=== PATIENT | male | born 1960 | race Caucasian/White ===

== ENCOUNTER 2016-12-01 10:56 | Emergency (ER) | payer MEDICAID ==
[2016-12-01] MEDS ORDERED: Sulfamethoxazole/Trimethoprim 800-160 MG Tab ONE (11:00)
--- NOTE | 2016-12-01 11:33 | EDM.PDOC ---
ED HPI GENERAL MEDICAL PROBLEM - General Chief Complaint: General Stated Complaint: POSSIBLE PNEUMONIA Time Seen by Provider: 12/01/16 11:05 Source of Information: Reports: Patient History Limitations: Reports: No limitations - History of Present Illness INITIAL COMMENTS - FREE TEXT/NARRATIVE: According to patient he has been having cough for past 1 wk. Cough is non productive and persistent all day and night. No fever or chills. He does have asthma, and claims it has been getting worse, get frequent chest tightness and wheezing. No body aches or chills. Has been feeling weak and tired. No nausea or vomiting. no loss of appetite. No chest pain, abdominal pain. No other complaints. Improves with: Reports: None Worsens with: Reports: None Associated Symptoms: Reports: cough, weakness. Denies: confusion, chest pain, diaphoresis, fever/chills, headaches, loss of appetite, nausea/vomiting, rash, seizure, shortness of breath - Related Data Allergies Allergy/AdvReac Type Severity Reaction Status Date / Time No Known Allergies Allergy Verified 12/01/16 11:09 Home Meds: Home Meds Albuterol [Ventolin HFA] 1 puff INH Q4HR PRN 12/01/16 [History] Fluticasone/Salmeterol [Advair 250-50 Diskus] 1 each IH BID 12/01/16 [History] Past Medical History HEENT History: Reports: None Cardiovascular History: Reports: None Respiratory History: Reports: None, Asthma Gastrointestinal History: Reports: None Genitourinary History: Reports: None Musculoskeletal History: Reports: Back pain, chronic Neurological History: Reports: None Endocrine/Metabolic History: Reports: None Oncologic (Cancer) History: Reports: None - Past Surgical History Other HEENT Surgeries/Procedures: cataract surgery right eye Other Respiratory Surgeries/Procedures: asthma Other Musculoskeletal Surgeries/Procedures:: coccyx fracture, stiffness in joints ED ROS GENERAL - Review of Systems Review Of Systems: See Below Constitutional: Reports: weakness. Denies: fever, chills HEENT: Denies: Ear pain, Rhinitis, Sinus problem, Throat pain, Throat swelling Respiratory: Reports: Wheezing, Cough. Denies: Shortness of Breath, Pleuritic Chest Pain, Sputum Cardiovascular: Denies: Chest pain, Lightheadedness Endocrine: Denies: fatigue GI/Abdominal: Denies: Abdominal pain, Constipation, Diarrhea, Nausea, Vomiting : Denies: dysuria, flank pain Musculoskeletal: Denies: joint pain, joint swelling Skin: Denies: pruritis, rash ED EXAM, GENERAL - Physical Exam Exam: See Below Exam Limited By: No limitations General Appearance: alert, WD/WN, no apparent distress Eye Exam: bilateral eye: EOMI, PERRL Ears: normal external exam, normal canal, hearing grossly normal, normal TMs Ear Exam: bilateral ear: auricle normal, canal normal, TM normal Nose: normal inspection, normal mucosa, no blood, nasal drainage (minimal clear discharge) Throat/Mouth: Normal inspection, Normal lips, Normal teeth, Normal gums, Normal oropharynx, Normal voice, No airway compromise Head: atraumatic, normocephalic Neck: normal inspection, supple, non-tender, full range of motion Respiratory/Chest: no respiratory distress, normal breath sounds, no accessory muscle use, chest non-tender, rhonchi (few expiratory rhonchi hear over the lung rao) Cardiovascular: normal peripheral pulses, regular rate, rhythm, no edema, no gallop, no JVD, no murmur, no rub Extremities: normal inspection, normal range of motion, non-tender, normal capillary refill, no pedal edema Skin Exam: Warm, Intact Course - Vital Signs Text/Narrative:: Pt's CBC and his chest Xray appear normal. Pt reassured that he has bronchitis with bronchospasms secondary to underlying asthma. His SPO is 98% on room air and his vital are stable. As his symptoms have been going on for more than a week and getting worse, I have empirically covered him with BActrim for 1 wk. Continue albuterol inhaler as needed for wheezing episodes.Advised steam inhalations 2-3 times daily and also Mucinex for cough as needed Last Recorded V/S: Last Vital Signs Temp 97.9 F 12/01/16 11:05 Pulse 81 12/01/16 11:05 Resp 20 12/01/16 11:05 BP 141/93 H 12/01/16 11:05 Pulse Ox 98 12/01/16 11:05 - Orders/Labs/Meds Orders: Active Orders 24 hr Category Date Time Status Chest 2V [CR] Stat Exams 12/01/16 11:27 Ordered Labs: Laboratory Tests 12/01/16 Range/Units 11:27 WBC 8.5 (4.0-11.0) K/uL RBC 5.26 (4.50-6.50) M/uL Hgb 15.1 (13.0-18.0) g/dL Hct 45.2 (40.0-54.0) % MCV 86 (76-96) fL MCH 28.7 (27.0-32.0) pg MCHC 33.4 (31.0-35.0) g/dL RDW 14.4 (11.0-16.0) % Plt Count 310 (150-400) K/uL MPV 10.1 H (6.0-10.0) fL Neut % (Auto) 58.4 (45.0-70.0) % Lymph % (Auto) 26.9 (20.0-40.0) % [place] % (Auto) 6.4 (3.0-10.0) % Eos % (Auto) 7.7 H (1.0-5.0) % Baso % (Auto) 0.6 H (0.0-0.5) % Neut # (Auto) 4.96 (2.00-7.50) K/uL Lymph # (Auto) 2.28 (1.50-4.00) K/uL [place] # (Auto) 0.54 (0.20-0.80) K/uL Eos # (Auto) 0.65 H (0.04-0.40) K/uL Baso # (Auto) 0.05 (0.02-0.10) K/uL Departure - Departure Time of Disposition: 12:10 Disposition: Home, Self-Care 01 Condition: good Clinical Impression: Bronchitis with bronchospasm Forms: ED Department Discharge Additional Instructions: Pt's CBC and his chest Xray appear normal. Pt reassured that he has bronchitis with bronchospasms secondary to underlying asthma. His SPO is 98% on room air and his vital are stable. As his symptoms have been going on for more than a week and getting worse, I have empirically covered him with BActrim for 1 wk. Continue albuterol inhaler as needed for wheezing episodes.Advised steam inhalations 2-3 times daily and also Mucinex for cough as needed - Problem List & Annotations (1) Bronchitis with bronchospasm SNOMED Code(s): 28954327, 26119747 Code(s): J20.9 - ACUTE BRONCHITIS, UNSPECIFIED Status: Acute Current Visit: Yes - Problem List Review Problem List Initiated/Reviewed/Updated: Yes - My Orders Last 24 Hours: My Active Orders 12/01/16 11:27 Chest 2V [CR] Stat - Assessment/Plan Last 24 Hours: My Active Orders 12/01/16 11:27 Chest 2V [CR] Stat Assessment:: Bronchitis with Bronchospasm Plan: Pt's CBC and his chest Xray appear normal. Pt reassured that he has bronchitis with bronchospasms secondary to underlying asthma. His SPO is 98% on room air and his vital are stable. As his symptoms have been going on for more than a week and getting worse, I have empirically covered him with BActrim for 1 wk. Continue albuterol inhaler as needed for wheezing episodes.Advised steam inhalations 2-3 times daily and also Mucinex for cough as needed
[2016-12-01 11:34] VITALS: BP 141/93
--- NOTE | 2016-12-02 07:27 | CR ---
DATE OF SERVICE: 12/01/16 CLINICAL DATA: Cough PA AND LATERAL CHEST: The heart size is normal. There is mild pleural thickening of both hemithoraces. The lungs are clear. No pneumothorax. No pleural effusions. No areas of consolidation. There is degenerative disc disease at multiple levels in the thoracic spine. No significant changes from the prior exam. IMPRESSION: No evidence of acute intrathoracic disease. [id number] [facility]
== END 2016-12-01 12:20 | disposition home or self-care (01) ==
LOC: LB.ED 10:56
DX: J40 Bronchitis, not specified as acute or chronic (principal); J98.01 Acute bronchospasm; Z79.899 Other long term (current) drug therapy; Z98.41 Cataract extraction status, right eye
CPT/HCPCS: 36415; 71020; 85025; 99283; A9270

== ENCOUNTER 2017-09-01 01:04 | Emergency (ER) | payer MEDICAID ==
[2017-09-01] MEDS ORDERED: methylPREDNISolone Sodium Succinate 125 MG/2 ML SDV IVPUSH ONE (01:46)
[2017-09-01 01:50] VITALS: BP 158/107
[2017-09-01] MEDS ORDERED: predniSONE 10 MG Tab ONE (02:00)
[2017-09-01] MEDS ORDERED: Albuterol/Ipratropium 3.0-0.5 MG/3 ML Neb Soln ONE (02:16)
[2017-09-01] MEDS ORDERED: Albuterol/Ipratropium 3.0-0.5 MG/3 ML Neb Soln NEB SCH (06:00)
--- NOTE | 2017-09-01 13:13 | EDM.PDOC ---
ED HPI GENERAL MEDICAL PROBLEM - General Chief Complaint: Asthma Stated Complaint: Asthma, trouble breathing Time Seen by Provider: 09/01/17 01:34 Source of Information: Reports: Patient, Family History Limitations: Reports: Respiratory Distress - History of Present Illness INITIAL COMMENTS - FREE TEXT/NARRATIVE: This is a 56yo M who states the past week he has been having increased shortness of breath and using his inhaler multiple times a day. Patient did state he had some chest pressure yesterday and the day before but has not had this today. Patient has a history of asthma and had been on inhaled corticosteroids since he was 14 then was told to discontinue them many years ago. Since then he has only been on his rescue inhaler and what the patient thinks is Spiriva. Patient states he has trouble catching his breath. He is planning a trip later today to see family. He dose have audible wheezes and increased effort of breathing. Onset: Gradual Duration: Week(s): Location: Reports: Chest Severity: Moderate Improves with: Reports: None Worsens with: Reports: Movement Associated Symptoms: Reports: Shortness of Breath Treatments EXPLOSIVE ORDNANCE DISPOSAL SPECIALIST: Reports: Breathing Treatments, Other (see below) Other Treatments EXPLOSIVE ORDNANCE DISPOSAL SPECIALIST: Albuteral inahler 20min EXPLOSIVE ORDNANCE DISPOSAL SPECIALIST - Related Data Allergies Allergy/AdvReac Type Severity Reaction Status Date / Time No Known Allergies Allergy Verified 12/01/16 11:09 Home Meds: Home Meds Albuterol [Ventolin HFA] 1 puff INH Q4HR PRN 12/01/16 [History] Past Medical History HEENT History: Reports: None Cardiovascular History: Reports: None Respiratory History: Reports: None, Asthma Gastrointestinal History: Reports: None Genitourinary History: Reports: None Musculoskeletal History: Reports: Back Pain, Chronic Neurological History: Reports: None Endocrine/Metabolic History: Reports: None Oncologic (Cancer) History: Reports: None - Infectious Disease History Infectious Disease History: Reports: Chicken Pox, Measles, Mumps - Past Surgical History Other HEENT Surgeries/Procedures: cataract surgery right eye Other Respiratory Surgeries/Procedures: asthma Other Musculoskeletal Surgeries/Procedures:: coccyx fracture, stiffness in joints Social & Family History - Family History Family Medical History: Noncontributory - Tobacco Use Smoking Status *Q: Never Smoker Second Hand Smoke Exposure: No - Caffeine Use Caffeine Use: Reports: Soda, Tea - Recreational Drug Use Recreational Drug Use: No ED ROS GENERAL - Review of Systems Review Of Systems: ROS reveals no pertinent complaints other than HPI. ED EXAM, GENERAL - Physical Exam Exam: See Below Exam Limited By: No Limitations General Appearance: Alert, WD/WN, Mild Distress Eye Exam: Bilateral Eye: EOMI, PERRL Nose: Normal Inspection Throat/Mouth: Normal Inspection Head: Atraumatic, Normocephalic Neck: Normal Inspection Respiratory/Chest: Decreased Breath Sounds, Wheezing Cardiovascular: Normal Peripheral Pulses Peripheral Pulses: 2+: Dorsalis Pedis (L), Dorsalis Pedis (R) GI/Abdominal: Normal Bowel Sounds Extremities: Normal Inspection Neurological: Alert, Oriented, CN II-XII Intact Psychiatric: Normal Affect, Normal Mood Course - Vital Signs Last Recorded V/S: Last Vital Signs Temp 37.3 C 09/01/17 01:47 Pulse 102 H 09/01/17 01:47 Resp 24 H 09/01/17 01:47 BP 158/107 H 09/01/17 01:47 Pulse Ox 98 09/01/17 01:47 - Orders/Labs/Meds Orders: Active Orders 24 hr Category Date Time Status EKG Documentation Completion [RC] ASDIRECTED Care 09/01/17 01:44 Active RT Aerosol Therapy [RC] ASDIRECTED Care 09/01/17 01:45 Active Chest 1V Frontal [CR] Stat Exams 09/01/17 01:44 Ordered Labs: Laboratory Tests 09/01/17 09/01/17 09/01/17 Range/Units 01:55 01:55 01:55 WBC 9.9 (4.0-11.0) K/uL RBC 4.93 (4.50-6.50) M/uL Hgb 14.2 (13.0-18.0) g/dL Hct 42.2 (40.0-54.0) % MCV 86 (76-96) fL MCH 28.8 (27.0-32.0) pg MCHC 33.6 (31.0-35.0) g/dL RDW 14.2 (11.0-16.0) % Plt Count 268 (150-400) K/uL MPV 9.8 (6.0-10.0) fL Neut % (Auto) 61.7 (45.0-70.0) % Lymph % (Auto) 25.1 (20.0-40.0) % [place] % (Auto) 8.0 (3.0-10.0) % Eos % (Auto) 4.8 (1.0-5.0) % Baso % (Auto) 0.4 (0.0-0.5) % Neut # (Auto) 6.13 (2.00-7.50) K/uL Lymph # (Auto) 2.49 (1.50-4.00) K/uL [place] # (Auto) 0.79 (0.20-0.80) K/uL Eos # (Auto) 0.48 H (0.04-0.40) K/uL Baso # (Auto) 0.04 (0.02-0.10) K/uL VBG pH 7.44 H (7.31-7.41) Sodium 140 (136-145) mmol/L Potassium 3.8 (3.5-5.1) mmol/L Chloride 105 (98-107) mmol/L Carbon Dioxide 24.7 (21.0-32.0) mmol/L Anion Gap 14.1 (5.0-15.0) mmol/L BUN 7 L D (8-26) mg/dL Creatinine 0.92 (0.70-1.30) mg/dL Est Cr Clr Drug Dosing TNP Estimated GFR (MDRD) > 60 (>60) MLS/MIN BUN/Creatinine Ratio 7.6 (6-25) Glucose 140 H D (74-100) mg/dL Calcium 8.5 (8.5-10.1) mg/dL Troponin I (0.000-0.060) ng/mL B-Natriuretic Peptide (0-125) pg/mL 09/01/ Range/Units 01:55 WBC (4.0-11.0) K/uL RBC (4.50-6.50) M/uL Hgb (13.0-18.0) g/dL Hct (40.0-54.0) % MCV (76-96) fL MCH (27.0-32.0) pg MCHC (31.0-35.0) g/dL RDW (11.0-16.0) % Plt Count (150-400) K/uL MPV (6.0-10.0) fL Neut % (Auto) (45.0-70.0) % Lymph % (Auto) (20.0-40.0) % [place] % (Auto) (3.0-10.0) % Eos % (Auto) (1.0-5.0) % Baso % (Auto) (0.0-0.5) % Neut # (Auto) (2.00-7.50) K/uL Lymph # (Auto) (1.50-4.00) K/uL [place] # (Auto) (0.20-0.80) K/uL Eos # (Auto) (0.04-0.40) K/uL Baso # (Auto) (0.02-0.10) K/uL VBG pH (7.31-7.41) Sodium (136-145) mmol/L Potassium (3.5-5.1) mmol/L Chloride (98-107) mmol/L Carbon Dioxide (21.0-32.0) mmol/L Anion Gap (5.0-15.0) mmol/L BUN (8-26) mg/dL Creatinine (0.70-1.30) mg/dL Est Cr Clr Drug Dosing Estimated GFR (MDRD) (>60) MLS/MIN BUN/Creatinine Ratio (6-25) Glucose (74-100) mg/dL Calcium (8.5-10.1) mg/dL Troponin I < 0.017 (0.000-0.060) ng/mL B-Natriuretic Peptide 15 (0-125) pg/mL Meds: Medications Discontinued Medications Generic Name Dose Route Start Last Admin Trade Name Steve PRN Reason Stop Dose Admin Albuterol/Ipratropium 3 ml 09/01/17 06:00 09/01/17 01:40 Duoneb 3.0-0.5 Mg/3 Ml NEB 3 ml Q2HR LESLIE Administration Albuterol/Ipratropium Confirm 09/01/17 02:16 Duoneb 3.0-0.5 Mg/3 Ml Administered 09/01/17 02:17 Dose 18 ml .ROUTE .STK-MED ONE Methylprednisolone Sodium Succinate 125 mg 09/01/17 01:46 09/01/17 01:58 Solu-Medrol IVPUSH 09/01/17 01:47 125 mg ONETIME ONE Administration - Re-Assessments/Exams Free Text/Narrative Re-Assessment/Exam: Treatment with duoneb nebulized solution. Within minutes of finishing course his audible wheezes resolved but did have some mild expiratory wheezes. Patient states he feels much improved and his work of respiration resolved. Departure - Departure Time of Disposition: 03:30 Disposition: Home, Self-Care 01 Condition: Good Clinical Impression: Asthma exacerbation Qualifiers: Asthma severity: severe Asthma persistence: persistent Qualified Code(s): J45.51 - Severe persistent asthma with (acute) exacerbation - Discharge Information Instructions: Asthma, Adult Referrals: PCP,None [Primary Care Provider] - Forms: ED Department Discharge Additional Instructions: Take Prednisone 5 tab every 24hrs until gone. Duoneb Neb tx every 4 hours, Beclamethasone inhaler BID Counseled on inhaled steroids for maintenance of his asthma due to his excessive albuterol use. Discussed the need to see his PCP for f/u asthma control. Discussed that he should not require multiple doses of albuterol daily - did discuss difference of exercise induced vs uncontrolled asthma. Patient agreed on compliance and f/u. He does have a nebulizer machine at home. F/u as directed and if any further concerns. - My Orders Last 24 Hours: My Active Orders 09/01/17 01:44 EKG Documentation Completion [RC] ASDIRECTED Chest 1V Frontal [CR] Stat 09/01/17 01:45 RT Aerosol Therapy [RC] ASDIRECTED - Assessment/Plan Last 24 Hours: My Active Orders 09/01/17 01:44 EKG Documentation Completion [RC] ASDIRECTED Chest 1V Frontal [CR] Stat 09/01/17 01:45 RT Aerosol Therapy [RC] ASDIRECTED
--- NOTE | 2017-09-02 16:06 | CR ---
DATE OF SERVICE: 09/01/17 CLINICAL DATA: Shortness of breath. AP PORTABLE CHEST: Comparison is made to a prior exam dated 12/01/16. The patient has taken a poor inspiration. The heart size is normal. The lungs appear clear. No pneumothorax. No pleural effusions. No areas of consolidation. No evidence of acute intrathoracic disease. [id number] [facility]
== END 2017-09-01 02:20 | disposition home or self-care (01) ==
LOC: LB.ED 01:04
DX: J45.51 Severe persistent asthma with (acute) exacerbation (principal)
CPT/HCPCS: 36415; 71010; 80048; 82800; 83880; 84484; 85025; 93005; 96374; 99285; A9270; J2930; J7620

== ENCOUNTER 2021-03-23 11:55 | Emergency (ER) | payer SELFPAY ==
[2021-03-23 12:51] VITALS: BP 146/89; PULSE 92
--- NOTE | 2021-03-23 13:18 | EDM.PDOC ---
ED HPI GENERAL MEDICAL PROBLEM - General Chief Complaint: General Stated Complaint: SHORT OF BREATH Time Seen by Provider: 03/23/21 11:55 - History of Present Illness INITIAL COMMENTS - FREE TEXT/NARRATIVE: Pt states he is SOB the last couple days. He has Hx of Asthma and Pneumonia, and almost from it a couple yrs ago. He felt anxious and thought he should come in. - Related Data Allergies Allergy/AdvReac Type Severity Reaction Status Date / Time No Known Allergies Allergy Verified 10/05/20 15:50 Home Meds: Home Meds Albuterol [Ventolin HFA] 1 puff INH Q4HR PRN 12/01/16 [History] Past Medical History HEENT History: Reports: None Cardiovascular History: Reports: None Respiratory History: Reports: None, Asthma Gastrointestinal History: Reports: None Genitourinary History: Reports: None Musculoskeletal History: Reports: Back Pain, Chronic Neurological History: Reports: None Endocrine/Metabolic History: Reports: None Oncologic (Cancer) History: Reports: None - Infectious Disease History Infectious Disease History: Reports: Chicken Pox, Measles, Mumps - Past Surgical History Other HEENT Surgeries/Procedures: cataract surgery right eye Other Respiratory Surgeries/Procedures: asthma Other Musculoskeletal Surgeries/Procedures:: coccyx fracture, stiffness in joints Social & Family History - Family History Family Medical History: No Pertinent Family History - Tobacco Use Tobacco Use Status *Q: Never Tobacco User - Caffeine Use Caffeine Use: Reports: Coffee ED ROS GENERAL - Review of Systems Review Of Systems: Comprehensive ROS is negative, except as noted in HPI. Respiratory: Reports: Shortness of Breath ED EXAM, GENERAL - Physical Exam Exam: See Below Free Text/Narrative:: Pt is awake and alert. No respiratory distress at this time. Covid test is negative. Lungs are clear with fairly good air exchange. No wheezing, Rhonchi, or rales. Skin is warm and dry. Course - Vital Signs Text/Narrative:: Covid is negative. Last Recorded V/S: Last Vital Signs Temp 97.6 F 03/23/21 12:05 Pulse 92 03/23/21 12:05 Resp 16 03/23/21 12:05 BP 146/89 H 03/23/21 12:05 Pulse Ox 97 03/23/21 12:05 - Orders/Labs/Meds Labs: Laboratory Tests 03/23/21 Range/Units 12:25 SARS CoV-2 RNA Rapid ALFONSO Negative Departure - Departure Time of Disposition: 13:05 Disposition: Home, Self-Care 01 Condition: Good Clinical Impression: Hyperventilation Asthma Qualifiers: Asthma severity: mild Asthma persistence: intermittent Asthma complication type: uncomplicated Qualified Code(s): J45.20 - Mild intermittent asthma, uncomplicated - Discharge Information *PRESCRIPTION DRUG MONITORING PROGRAM REVIEWED*: Not Applicable *COPY OF PRESCRIPTION DRUG MONITORING REPORT IN PATIENT DILSHAD: Not Applicable Instructions: Asthma, Adult, Hyperventilation Referrals: PCP,None [Primary Care Provider] - Forms: ED Department Discharge Additional Instructions: Pt does not have insurance. He is feeling much better and does not want any further workup. I will refill his Advair and Albuterol Nebs. He is to follow up as needed with his PCP. Care Plan Goals: Refill prescriptions for advair and albuterol neb as provided. Follow up with primary Sepsis Event Note (ED) - Evaluation Sepsis Screening Result: No Definite Risk - Focused Exam Vital Signs: Vital Signs Temp Pulse Resp BP Pulse Ox 03/23/21 12:05 97.6 F 92 16 146/89 H 97
== END 2021-03-23 13:20 | disposition home or self-care (01) ==
LOC: LB.ED 11:55
DX: J45.20 Mild intermittent asthma, uncomplicated (principal); R06.4 Hyperventilation; Z20.822 Contact with and (suspected) exposure to COVID-19
CPT/HCPCS: 99284; U0002

== ENCOUNTER 2022-05-05 04:00 | Emergency (ER) | payer BC ==
[2022-05-05 05:02] LABS: HEMOGLOBIN A1C 6.1 % (< 5.7)
[2022-05-05 05:31] VITALS: BP 134/79; PULSE 88
== END 2022-05-05 06:00 | disposition home or self-care (01) ==
LOC: LB.ED 04:00
DX: R07.89 Other chest pain (principal); J45.909 Unspecified asthma, uncomplicated; R94.6 Abnormal results of thyroid function studies; R53.83 Other fatigue; Z79.899 Other long term (current) drug therapy
CPT/HCPCS: 36415; 71045; 80053; 83036; 83880; 84443; 84484; 85025; 85379; 93005; 99285

== ENCOUNTER 2023-07-06 04:43 | Emergency (ER) | payer BC ==
[2023-07-06 04:54] VITALS: BP 128/88; PULSE 93
[2023-07-06] MEDS ORDERED: Azithromycin 250 MG Tab ONE (05:30)
[2023-07-06] MEDS ORDERED: predniSONE 10 MG Tab ONE (05:30)
== END 2023-07-06 05:36 | disposition home or self-care (01) ==
LOC: LB.ED 04:43
DX: J40 Bronchitis, not specified as acute or chronic (principal); Z79.899 Other long term (current) drug therapy
CPT/HCPCS: 99284; A9270-GY; J7512

== ENCOUNTER 2025-01-30 20:55 | Emergency (ER) | payer BC, MEDICAID ==
[2025-01-30] MEDS: Lidocaine 2% 5 ML SDV INJECT ONE (21:28)
[2025-01-30 21:59] VITALS: BP 131/88; PULSE 95
[2025-01-30] MEDS: Bacitracin Oint 1 GM U/D Packet TOP PRN (22:15)
[2025-01-30] MEDS: Diphtheria,Pertussis(Acell),Tetanus Vaccine 0.5 ML Syringe IM ONE (22:28)
[2025-01-30] MEDS: Lidocaine 2% 20 ML MDV INFILT ONE (22:30)
== END 2025-01-30 22:46 | disposition home or self-care (01) ==
LOC: LB.ED 20:55
DX: S61.210A Laceration without foreign body of right index finger without damage to nail, initial encounter (principal); S61.212A Laceration without foreign body of right middle finger without damage to nail, initial encounter; J45.909 Unspecified asthma, uncomplicated; F17.200 Nicotine dependence, unspecified, uncomplicated; E66.9 Obesity, unspecified; Z68.37 Body mass index [BMI] 37.0-37.9, adult; Z79.51 Long term (current) use of inhaled steroids; W26.8XXA Contact with other sharp object(s), not elsewhere classified, initial encounter; Z23 Encounter for immunization
CPT/HCPCS: 12002; 73140-F6; 90471; 90715; 99283-25; J2003